=== PATIENT | female | born 1990 | race Two or more races ===

== ENCOUNTER 2025-02-17 20:51 | Emergency (ER) | payer OTHER, SELFPAY ==
[2025-02-17 20:52] VITALS: BMI 24.3
[2025-02-17 21:02] VITALS: BP 121/56; PULSE 59; RESP 20; TEMP 36.3; O2SAT 100
--- NOTE | 2025-02-17 21:15 | XR_ITS ---
Examination: Abdomen sonogram, Limited Date and time of exam: February 17, 2025 2154 hours INDICATIONS: Abdominal pain and vomiting today Multiple transabdominal sonographic images abdomen FINDINGS: Absent gallbladder Normal common bile duct 0.4 cm Pancreatic head 2.1 cm Liver 16.8 cm fatty infiltration Normal hepatopedal portal venous O Patent IVC IMPRESSION: Absent gallbladder Normal common bile duct. Mild hepatomegaly with fatty liver
--- NOTE | 2025-02-17 21:16 | PD.EDRME ---
Rapid Medical Screening Exam RME Arrival date/time: 02/17/25 20:51 This is a 35-year-old female that comes in with complaints of abdominal pain nausea vomiting that started today. Patient has had gastritis in the past. I have greeted and performed a focused initial assessment of this patient. Initial appropriate labs ordered at this time. A comprehensive ED assessment and evaluation of the patient and analysis of all test and completion of medical decision making process will be conducted by additional ED provider. Chief Complaint: Abdominal Pain Time Seen by Provider: 02/17/25 21:08 Vital signs: Vital Signs Temperature 97.4 F 02/17/25 21:02 Pulse Rate 59 L 02/17/25 21:02 Respiratory Rate 20 02/17/25 21:02 Blood Pressure 121/56 L 02/17/25 21:02 Pulse Oximetry (%) 100 02/17/25 21:02 Oxygen Delivery Method Room Air 02/17/25 21:02
[2025-02-17 21:34] LABS: Collection Type, Urine Voided
[2025-02-17 21:44] LABS: Basophils # (Auto) 0.1 Thou/mm3 (0.0-0.2); Basophils % (Auto) 0 % (0-2.5); Eosinophils % (Auto) 0 % (0-10); Hematocrit 38.8 % (36.0-46.0); Hemoglobin 13.6 g/dL (12.0-16.0); Immature Granulocytes % (Auto) 1 % (0-0); Immature Granulocytes Auto 0.14 Thou/mm3 (0.00-0.00); Lymphocytes % (Auto) 4 % (10-50); Mean Corpuscular HGB Conc 35.1 g/dl (31.0-37.0); Mean Corpuscular Hemoglobin 31.3 pg (25.0-35.0); Mean Corpuscular Volume 89 fL (80-100); Monocytes # (Auto) 1.4 Thou/mm3 (0.0-0.8); Monocytes % (Auto) 5 % (0-12); Neutrophils # (Auto) 24.7 Thou/mm3 (1.8-7.7); Neutrophils % (Auto) 91 % (37-80); Nucleated Red Blood Cell % 0 /100 WBC (0); Platelet Count 221 Thou/mm3 (140-440); RDW Standard Deviation 38.9 fL (36.4-46.3); Red Blood Count 4.35 Miln/mm3 (4.00-5.20); White Blood Count 27.2 Thou/mm3 (3.6-11.0)
[2025-02-17] MEDS: ONDANSETRON ODT 4 MG TABRAP PO (21:44)
[2025-02-17 21:45] LABS: Bilirubin,Urine Negative (Negative); Blood,Urine Negative (Negative); Clarity,Urine Clear (Clear/Hazy); Color,Urine Yellow (Lt Yel-Yel); Culture Indicated,Urine Not Indicated; Glucose, Urine 3+ (Negative); Ketones,Urine 4+ (Negative); Leukocyte Esterase,Urine Negative (Negative); Nitrite,Urine Negative (Negative); Protein,Urine 2+ (Neg - Trace); RBC,Urine 3 /hpf (0-3); Specific Gravity,Urine 1.046 (1.001-1.035); Squamous Epithelial Cell,Urine 3 /hpf (0-5); Urobilinogen,Urine Negative mg/dL (0.0-1.0); WBC,Urine 2 /hpf (0-5)
[2025-02-17 22:00] LABS: Alanine Aminotransferase 12 U/L (10-49); Albumin/Globulin Ratio 1.8 (1.2-2.2); Alkaline Phosphatase 69 U/L (46-116); Anion Gap 15 (7-16); Aspartate Amino Transferase 17 U/L (0-34); BUN/Creatinine Ratio 13 Ratio (12-20); Bilirubin,Total 1.9 mg/dL (0.3-1.2); Blood Urea Nitrogen 10 mg/dL (9-23); Calcium 9.9 mg/dL (8.3-10.6); Calcium (Corrected) 9.9 mg/dL (8.5-10.1); Carbon Dioxide 20.6 mMol/L (20.0-31.0); Chloride 107 mMol/L (98-107); Creatinine (Component) 0.8 mg/dL (0.6-1.3); Estimated Creatinine Clearance 95.4 mL/min (>60); Globulin 2.8 gm/dL (2.3-3.5); Glucose 240 mg/dL (74-106); Lipase 28 U/L (12-53); Osmolality,Calculated 291 (275-295); Potassium 3.2 mMol/L (3.4-5.1); Sodium 143 mMol/L (136-145); Total Protein 7.8 gm/dL (5.7-8.2); eGFR > 60 See Note
[2025-02-17 22:04] LABS: Amphetamine/Methamp Scrn,U Negative (Negative); Barbiturate Screen,Urine Negative (Negative); Benzodiazepines Screen,Urine Negative (Negative); Benzoylecgonine Screen, Ur Negative (Negative); Fentanyl Screen,Urine Positive (Negative); Opiate Screen,Urine Positive (Negative); THC Screen,Urine Positive (Negative)
[2025-02-17] MEDS: LIDOCAINE VISCOUS 2% 15 ML UDC 10 ML PO (22:24)
[2025-02-17] MEDS: MG HYD/AL HYD/SIME (Maalox Reg) SUSP 30 ML UDC PO (22:24)
[2025-02-17 22:28] LABS: HCG,Qualitative Serum Negative
[2025-02-17 23:56] VITALS: BP 132/60; PULSE 58; RESP 17; TEMP 36.6; O2SAT 99
[2025-02-18] VITALS (8 sets, daily range): BP systolic 127–169; BP diastolic 60–82; PULSE 54–78; RESP 16–20; TEMP 36.7–37.2; O2SAT 97–99
--- NOTE | 2025-02-18 | XR_ITS ---
MRI abdomen, without contrast. MRCP Date and time of exam: February 18, 2025 1017 hours INDICATIONS: Nausea vomiting beginning yesterday Technique: Multiple axial and coronal images of the abdomen have been obtained with the Siemens 1.5T MRI scanner. Images obtained included T1 weighted transverse images, T2-weighted transverse images, T2-weighted transverse images fat-suppressed, T2 weighted haste fat suppressed transverse images, T1 weighted images, in and out of phase images, T2-weighted coronal images, breath hold, T2 weighted haze coronal images as well as T2 weighted coronal thick slab images, MRCP. Findings: Hepatomegaly 17 cm No intrahepatic biliary tract dilatation No focal liver lesions Absent gallbladder Normal common hepatic common bile duct, no stones No dilated pancreatic duct No peripancreatic edema Spleen is not enlarged No hydronephrosis Aorta normal size No bowel obstruction IMPRESSION: Mild hepatomegaly Absent gallbladder Negative for common hepatic or common bile the stones Negative for pancreatitis
[2025-02-18] MEDS: SODIUM CHLORIDE 0.9% 1000 ML 1,000 ML 999 ML IV ×2 (00:05→06:53)
[2025-02-18] MEDS: HALOPERIDOL LACT INJ 5 MG/ML VIAL IM (00:08)
[2025-02-18] MEDS: DiphenhydrAMINE INJ 50 MG/ML VIAL 25 MG IVP (00:09)
[2025-02-18] MEDS: MORPHINE SULF INJ 10 MG/ML VIAL 4 MG IVP ×2 (00:32→02:43)
--- NOTE | 2025-02-18 02:02 | PD.EDABDPN ---
ED Abdominal Pain RME/HPI General Chief Complaint: Abdominal Pain Stated complaint: ABD PAIN/ VOMITING AND NAUSEA Time seen by provider: 02/17/25 21:08 Arrival date/time: 02/17/25 20:51 RME / HPI RME / HPI narrative: 02/17/25 20:51 This is a 35-year-old female that comes in with complaints of abdominal pain nausea vomiting that started today. Patient has had gastritis in the past. I have greeted and performed a focused initial assessment of this patient. Initial appropriate labs ordered at this time. A comprehensive ED assessment and evaluation of the patient and analysis of all test and completion of medical decision making process will be conducted by additional ED provider. DR. THOMAS MAIN ED EVALUATION: -P MHx: Gallbladder disease, hiatal hernia, ulcer -P Social Hx: Former heavy marijuana smoker 35 y/o female with Hx of gallbladder disease, hiatal hernia, and ulcer and SHx of cholecystectomy presents to ED c/o abdominal pain and vomiting x approximately 12 hours. Patient's last EGD was last week and was told that hernia was not bad enough for surgery. Prior to ED arrival, she was seen and discharged from [place] this afternoon. States she passed out and ambulance transferred her to [facility] where nothing was done to help her. Patient is currently on Protonix but it is not helping. LMP is unknown as she uses an IUD. She has not had a colonoscopy. Patient denies cigarette smoking, diarrhea, fever or any other associated symptoms or aggravating factors. No modifying factors, no radiation, no migration. No pain reported overall. PMHx: Ulcer, gallbladder disease, hiatal hernia Medications: Reviewed Social history: Former heavy marijuana smoker PCP: Dr. Nation Related Data Home Medications ?Medication ?Instructions ?Recorded ?Confirmed omeprazole 20 mg capsule,delayed 20 mg PO DAILY 03/14/21 03/14/21 release Previous Rx's ?Medication ?Instructions ?Recorded sucralfate 100 mg/mL oral 10 ml PO QID #1,000 mL 03/15/21 suspension (Carafate) aluminum-mag hydroxide-simethicone 10 ml PO BID #3,000 mL 11/11/23 200 mg-200 mg-20 mg/5 mL oral susp (Maalox Advanced) famotidine 40 mg tablet (Pepcid) 40 mg PO QDAY #30 tabs 11/11/23 ondansetron 4 mg disintegrating 4 mg PO Q8H PRN nausea and 11/11/23 tablet vomiting #30 tabs Allergies Allergy/AdvReac Type Severity Reaction Status Date / Time codeine Allergy Verified 02/17/25 21:20 Review of Systems Review of Systems Systems Reviewed: All systems reviewed, normal except as documented Narrative Review of Systems: Gen: No fever GI: + vomiting, no diarrhea Past Medical History Past Medical History GASTROINTESTINAL: Positive Gastrointestinal Disorders, Gall Bladder Disease and Ulcer Surgical History SURGICAL: Positive Abdominal Surgery ED Exam Narrative Physical exam: GENERAL: In general the patient is awake, interactive, looks like she feels unwell, in an emergency department rsouth bend. HEAD/EYES/EARS/NOSE/THROAT: normo-cephalic, atraumatic, clinically dehydrated. No cervical tenderness palpation midline. Supple neck. CARDIOVASCULAR: regular rate and regular rhythm, no murmurs, heart sounds are not distant, strong pulses in all four extremities that are equal and symmetric bilateral upper and lower extremities, normal capillary refill. CHEST/PULMONARY: normal chest rise and fall, good air movement, clear to auscultation bilaterally, normal inspiratory to expiratory ratios without evidence of respiratory distress. ABDOMEN: Guarding Course Quality Measures none Orders Category Date Time Status CT Screening NOW Care 02/18/25 04:29 Completed MRI Screening NOW Care 02/18/25 09:[address] abdomen pelvis w con Stat Exams 02/18/25 04:29 Completed MR MRCP Stat Exams 02/18/25 Completed US abdomen limited Stat Exams 02/17/25 21:15 Completed CBC Stat Lab 02/17/25 21:28 Completed CBC Stat Lab 02/18/25 10:10 Completed Comprehensive Metabolic Panel Stat Lab 02/17/25 21:28 Completed Drug Screen,Urine Stat Lab 02/17/25 21:27 Completed HCG,Qualitative Serum Stat Lab 02/17/25 21:28 Completed Lactate (Lactic Acid) Stat Lab 02/18/25 02:19 Completed Lactate (Lactic Acid) Stat Lab 02/18/25 10:10 Completed Lipase Stat Lab 02/17/25 21:28 Completed Procalcitonin Stat Lab 02/18/25 02:19 Completed Urinalysis, C/S if Indicated Stat Lab 02/17/25 21:27 Completed DiphenhydrAMINE INJ [Benadryl Inj] Med 02/17/25 23:57 Discontinued 25 mg IVP X1 ONE DiphenhydrAMINE INJ [Benadryl Inj] Med 02/17/25 23:51 Discontinued 50 mg IVP X1 ONE Famotidine Inj [Pepcid Inj] Med 02/18/25 02:08 Discontinued 20 mg IVP X1 ONE Haloperidol Lactate [Haldol Inj] Med 02/17/25 23:50 Discontinued 5 mg IM X1 ONE LORazepam [Ativan Inj] Med 02/18/25 02:05 Discontinued 1 mg IVP X1 ONE Lidocaine 2% Viscous [Xylocaine 2% Viscous] Med 02/17/25 22:16 Discontinued 10 ml PO X1 ONE Metoclopramide Inj [Reglan Inj] Med 02/18/25 02:07 Discontinued 10 mg IVP X1 ONE Morphine Inj Med 02/17/25 23:57 Discontinued 4 mg IVP X1 ONE Morphine Inj Med 02/18/25 02:21 Discontinued 4 mg IVP X1 ONE Ondansetron Inj [Zofran Inj] Med 02/18/25 02:05 Discontinued 4 mg IV X1 ONE Ondansetron Odt [Zofran Odt] Med 02/17/25 21:13 Discontinued 4 mg PO X1 ONE Sodium Chloride 0.9% 1000 ml [Ns] 1,000 ml Med 02/18/25 09:20 Discontinued IV 200 mls/hr Sodium Chloride 0.9% 1000 ml [Ns] 1,000 ml Med 02/17/25 23:50 Discontinued IV 999 mls/hr Sodium Chloride 0.9% 1000 ml [Ns] 1,000 ml Med 02/18/25 06:01 Discontinued IV 999 mls/hr mg Hyd/Al Hyd/Aj Susp [Maalox Susp] Med 02/17/25 22:16 Discontinued 30 ml PO X1 ONE Vital Signs Vital signs: Vital Signs Temperature 97.4 F 02/17/25 21:02 Pulse Rate 59 L 02/17/25 21:02 Respiratory Rate 20 02/17/25 21:02 Blood Pressure 121/56 L 02/17/25 21:02 Pulse Oximetry (%) 100 02/17/25 21:02 Oxygen Delivery Method Room Air 02/17/25 21:02 Abdominal Pain MDM MDM Narrative MDM Narrative:: Scribe Attestation: Vanessa Sharpe am scribing for and in the presence of Dr. Stevenson. Provider Notation: Although this document has been carefully reviewed, there may still be some phonetic and other typographical errors. These errors are purely grammatical due to imperfections in the software program and should not be construed in any way to compromise the substance of the patient's medical care during this visit. 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 The patient otherwise was given Haldol, morphine x 2, and IV fluids here in the emergency department. Her initial white count was 27,000 which can be elevated from vomiting however that is a pretty high amount. Her potassium is 3.2 and it is replaced. The patient's lactic acid is 1.2 and procalcitonin is negative. The patient has a total bili of 1.9 but has a history of elevated total bili with normal AST and ALT, patient also has a normal alk phos and lipase. Urinalysis shows specific gravity elevated 1.046, 2+ urine protein and 4+ ketones which is consistent with her dehydration. She has no bacteria and otherwise white cells are negative in the urine no leukocytes or nitrates. At this time I do not feel the patient has a UTI. Her drug screen is positive for marijuana positive. MDM Narrative:: Scribe Attestation: Vanessa Sharpe am scribing for and in the presence of Dr. Stevenson. Provider Notation: Although this document has been carefully reviewed, there may still be some phonetic and other typographical errors. These errors are purely grammatical due to imperfections in the software program and should not be construed in any way to compromise the substance of the patient's medical care during this visit. 0600: Care assumed by Dr. Shah (emergency physician). Past medical, surgical, social and family history reviewed. Vitals and home medications reviewed. Results and treatment plan discussed. They will assume the care of the patient at this time and will follow the patient, pending results for abdomen pelvis CT with contrast. Please refer to the emergency department record for history and examination from initial visit. 02/18/25 6:02 Vanessa Carias Patient data External records reviewed:: [facility] previous records (Prior ED records from 11/11/23 reviewed. Patient was seen for Gastritis.) Clinical information provided by:: patient Social determinants that could affect healthcare access:: none Patient has the following chronic illnesses:: Hiatal hernia, gallbladder disease, ulcer How is presenting disease/condition affected by chronic disease/condition?: exacerbated by Evaluation data The following diagnostics were reviewed and interpreted by me:: lab results and radiology exam(s) Lab and/or radiology exams considered but not ordered:: None Interpretation Summary: ABDOMEN US FINDINGS: Absent gallbladder Normal common bile duct 0.4 cm Pancreatic head 2.1 cm Liver 16.8 cm fatty infiltration Normal hepatopedal portal venous O Patent IVC IMPRESSION: Absent gallbladder Normal common bile duct. Mild hepatomegaly with fatty liver LABS Hematology: WBC 27.2, Neutrophils % 91%, Lymphocytres % 4%, Neutrophil # 24.7, Monocytes # 1.4, immature granulocytes # 0.14, Immature granulocytes % 1%. Chemistry: Potassium 3.2, Glucose 240, Total bilirubin 1.9, Lactic acid 1.2, Procalcitonin 0.07. Urine: Specific gravity 1.046, Protein 2+, Glucse 3+, Ketones 4+. Toxicology: Opiates Positive, Fentanyl Positive, Marijuana Positive Medications / Prescriptions Medications or Prescriptions considered but not ordered:: None Medication administrations:: Medication Administration History Discontinued Medications Al Hydrox/Mg Hydrox/Simethicone (Mg Hyd/Al Hyd/Aj (Maalox Reg) Susp 30 Ml Udc) 30 ml PO X1 ONE Stop: 02/17/25 22:17 Last Admin: 02/17/25 22:24 Dose: 30 ml Documented By: SHIMA Diphenhydramine HCl (Diphenhydramine Inj 50 Mg/Ml Vial) 50 mg IVP X1 ONE Stop: 02/17/25 23:52 Last Admin: 02/18/25 01:28 Dose: Not Given Documented By: YOVANI Non-Admin Reason: Cancelled by Provider Diphenhydramine HCl (Diphenhydramine Inj 50 Mg/Ml Vial) 25 mg IVP X1 ONE Stop: 02/17/25 23:58 Last Admin: 02/18/25 00:09 Dose: 25 mg Documented By: YOVANI Famotidine (Famotidine Inj 10 Mg/Ml Vial 2 Ml) 20 mg IVP X1 ONE Stop: 02/18/25 02:09 Last Admin: 02/18/25 02:44 Dose: 20 mg Documented By: YOVANI Haloperidol Lactate (Haloperidol Lact Inj 5 Mg/Ml Vial) 5 mg IM X1 ONE Stop: 02/17/25 23:51 Last Admin: 02/18/25 00:08 Dose: 5 mg Documented By: YOVANI Sodium Chloride (Ns) 1,000 mls @ 999 mls/hr IV .Q1H1M ONE Stop: 02/18/25 00:50 Last Infusion: 02/18/25 01:28 Dose: Infused Documented By: Admin: 02/18/25 00:05 Dose: 999 mls/hr Documented By: YOVANI Sodium Chloride (Ns) 1,000 mls @ 999 mls/hr IV .Q1H1M ONE Stop: 02/18/25 07:01 Last Infusion: 02/18/25 07:45 Dose: Infused Documented By: Admin: 02/18/25 06:53 Dose: 999 mls/hr Documented By: ROVERTO Sodium Chloride (Ns) 1,000 mls @ 200 mls/hr IV .Q5H ONE Stop: 02/18/25 14:19 Last Admin: 02/18/25 09:26 Dose: 200 mls/hr Documented By: ELIZABETH Lidocaine HCl (Lidocaine Viscous 2% 15 Ml Udc) 10 ml PO X1 ONE Stop: 02/17/25 22:17 Last Admin: 02/17/25 22:24 Dose: 10 ml Documented By: SHIMA Lorazepam (Lorazepam 2 Mg/Ml Vial) 1 mg IVP X1 ONE Stop: 02/18/25 02:06 Last Admin: 02/18/25 05:46 Dose: 1 mg Documented By: YOVANI Metoclopramide HCl (Metoclopramide Inj 5 Mg/Ml Vial 2 Ml) 10 mg IVP X1 ONE; Protocol Stop: 02/18/25 02:08 Last Admin: 02/18/25 02:44 Dose: 10 mg Documented By: YOVANI Morphine Sulfate (Morphine Sulf Inj 10 Mg/Ml Vial) 4 mg IVP X1 ONE Stop: 02/17/25 23:58 Last Admin: 02/18/25 00:32 Dose: 4 mg Documented By: YOVANI Morphine Sulfate (Morphine Sulf Inj 10 Mg/Ml Vial) 4 mg IVP X1 ONE Stop: 02/18/25 02:22 Last Admin: 02/18/25 02:43 Dose: 4 mg Documented By: YOVANI Ondansetron HCl (Ondansetron Odt 4 Mg Tabrap) 4 mg PO X1 ONE; Protocol Stop: 02/17/25 21:14 Last Admin: 02/17/25 21:44 Dose: 4 mg Documented By: MAHENDRA Ondansetron HCl (Ondansetron Inj 2 Mg/Ml Inj 2 Ml) 4 mg IV X1 ONE; Protocol Stop: 02/18/25 02:06 Last Admin: 02/18/25 05:52 Dose: 4 mg Documented By: YOVANI See above if any Consultations Consultation(s) initiated? (list below): No Diagnosis Differential diagnosis abdominal pain: abdominal pain Most likely diagnosis given after review of the tests above:: Abdominal pain, intractable nausea Admission Indicated Admission indicated?: not indicated Admission Request Was there a request for admission?: No Disposition Plan Disposition Plan: other (specify) Discharge Plan Plan Patient Disposition: HOME (Self Care) Prescriptions/Referrals Prescriptions/Med Rec: No Action omeprazole 20 mg capsule,delayed release(DR/EC) 20 mg PO DAILY Patient Comments: TAKE 1 CAPSULE BY MOUTH DAILY FOR 14 DAYS sucralfate [Carafate] 100 mg/mL suspension 10 ml PO QID Qty: 1000 0RF Rx Instructions: swish in mouth and swallow; use after food/drink famotidine [Pepcid] 40 mg tablet 40 mg PO QDAY Qty: 30 0RF ondansetron 4 mg tablet,disintegrating 4 mg PO Q8H PRN (Reason: nausea and vomiting) Qty: 30 0RF alum-mag hydroxide-simeth [Maalox Advanced] 200-200-20 mg/5 mL suspension 10 ml PO BID Qty: 3000 0RF Referrals: No Primary/Family,Physician [Primary Care Provider] - In 1 week Problem List Clinical Impression: Abdominal pain, Intractable nausea, Intractable cyclical vomiting, Acute dehydration, Leukocytosis, Elevated bilirubin, Marijuana use Patient/Caregiver Discharge Instructions Education Materials: Abdominal Pain, Dehydration, ED Vomiting (Adult) Additional Instructions: Today you had intractable nausea and vomiting with severe dehydration. You have had recurring bouts of the same thing for the past 4 years and evidently you had some significant weight loss. You must follow-up with your doctor and your specialist as we discussed. Keep a diary. You must stop using marijuana as this is known to cause a cyclical vomiting recurring problem. If you are getting worse please return for reevaluation. Print Language: Citizen Of [place]
[2025-02-18 02:29] LABS: Lactate (Lactic Acid) 1.2 mMol/L (0.4-2.0)
[2025-02-18] MEDS: METOCLOPRAMIDE INJ 5 MG/ML VIAL 2 ML 10 MG IVP (02:44)
[2025-02-18] MEDS: FAMOTIDINE INJ 10 MG/ML VIAL 2 ML 20 MG IVP (02:44)
--- NOTE | 2025-02-18 03:01 | PC.NURSE ---
pt is feeling better however pain is going back up. aditional morphine and some other meds given. pt is now asleep. holding ativan at this time beause second dose of morphing given and pt is sleeping. family who was at bedside left but will return.
[2025-02-18 03:36] LABS: Procalcitonin 0.07 ng/ml (0.0-0.49)
--- NOTE | 2025-02-18 04:29 | XR_ITS ---
Examination: CT abdomen with intravenous contrast CT pelvis with intravenous contrast 2-D coronal reconstructions 2-D sagittal reconstructions Date and time of exam:February 18, 2025 0628 hours Comparison November 11, 2023 INDICATIONS: History is abdominal pain beginning today, history gallbladder disease. CTDI: vol (mGy) 6.11 DLP: (mGycm) 311 Technique: Multiple axial sections of the abdomen and pelvis have been obtained. 64 slice high-resolution scanner used. 3 mm axial sections have been obtained, post intravenous injection of 60 cc [id number] 2-D sagittal, coronal reconstructions obtained. Low dose protocols were performed. One or more of the following dose reduction techniques were used; automated exposure control, adjustment of the mA and/or KV according to patient size, use of iterative reconstruction technique. Findings: Hepatomegaly 18 cm, no focal liver or splenic lesion Absent gallbladder Normal common bile duct Edema in the gastric mucosa axial image 86 No pancreatic mass or peripancreatic edema Aorta normal size. No bowel obstruction No pericecal inflammatory change Negative for diverticulitis Anteverted uterus with intrauterine device satisfactory position No uterine or adnexal mass Urinary bladder intact Osseous structures intact. Impression : Antral gastritis pattern Normal common hepatic common bile duct Negative for pancreatitis No renal or ureteral calculi No CT findings of appendicitis bowel obstruction or diverticulitis
[2025-02-18] MEDS: LORazepam 2 MG/ML VIAL 1 MG IVP (05:46)
[2025-02-18] MEDS: ONDANSETRON INJ 2 MG/ML INJ 2 ML 4 MG IV (05:52)
--- NOTE | 2025-02-18 09:01 | EDNOTE_ITS ---
Emergency Room Addendum <Aparna Walter - Last Filed: 02/18/25 11:58> Addendum Narrative: 0600: Care assumed from Dr. French, the previous shift emergency physician. Past medical, surgical, social and family history reviewed. Vitals and home medications reviewed. I will assume the care of the patient at this time, pending CT report and final disposition. Please refer to the emergency department record for history and examination from initial visit.?The following addendum documentation note is intended to reflect any pending information, findings, or radiology results not included in the patient?s initial chart. 0858: Patient remains clinically stable throughout the emergency department visit. We reviewed all the results, analysis, and treatment plans. At this time patient has a soft and benign abdomen. Patient was signed out 0600 hrs. Nancy has intractable nausea and vomiting with abdominal pain has had multiple recurrences gone to multiple hospitals even the last 24 hours. At 0840 hrs. I went back reevaluated the patient and she says she is feeling better she is up walking she still appears to be uncomfortable but much improved there is been no more vomiting and she been taking sips of water I took a more detailed history where she just saw her third GI specialist in the last 4 years in [place] who did an EGD in a couple weeks ago and it was entirely negative evidently.. Patient states she has had multiple workups in the past and they have never found the etiology to her nausea vomiting. She does use marijuana and is marijuana is positive in her system again today. She is aware that marijuana can cause intractable nausea and vomiting. Patient has lost 40 pounds of weight in the last 4 years Medical workup revealed a urine that was initially collected with a very concentrated urine of 1046. Urine drug screen is positive for marijuana fentanyl and opioids and she got fentanyl for pain medicine one of the other hospitals and opioids also. Or at least that is what is reported. hCG was negative today procalcitonin was negative lipase was negative. Lipase was negative. Transaminases were negative total bilirubin is elevated 1.9 note 3 years ago her bilirubin is normal but she has had 2 other measurements over the last 3 years that were slightly bumped with no workup or follow-up associated with those. Patient reports no MRCP has been done. She has a gallbladder that has been removed surgically. Ultrasound today revealed surgically absent gallbladder and normal findings otherwise. Lactic acid today was 1.2. Glucose was elevated to 40. Noted potassium was 3.2. No her white count was 27.2 thousand on arrival at 2128 last night with a 91% neutrophils On reevaluation this morning patient alert awake she is standing she appears to be nausea but says she feels minimal nausea and she also appears tired as she has not slept or eaten much in the last 24 hours. She has had 3 L of fluid. Her abdomen is totally soft and benign. Her breathing is normal her chest is unremarkable her lower extremities are unremarkable there is no edema. She had normal gait and station At this time she has a minimally elevated bilirubin I am going to get MRCP to rule out a choledocholithiasis since she has had 3 past bilirubins with no MRCP on record. I will recheck a urine and a CBC make sure the white count is gone down and her specific gravity is normalized. Repeat a lactic acid since the first 1 was negative I assume this 1 will be about the same or better. RADIOLOGY Ordering Physician: Coni French MD Date of Service: 02/18/25 Procedure(s): CT abdomen pelvis w con Accession Number(s): [id number] cc: Michael Santiago MD; NO PRIMARY/FAMILY,PHYSICIAN; Coni French MD~ Examination: CT abdomen with intravenous contrast CT pelvis with intravenous contrast 2-D coronal reconstructions 2-D sagittal reconstructions Date and time of exam:February 18, 2025 0628 hours Comparison November 11, 2023 INDICATIONS: History is abdominal pain beginning today, history gallbladder disease. CTDI: vol (mGy) 6.11 DLP: (mGycm) 311 Technique: Multiple axial sections of the abdomen and pelvis have been obtained. 64 slice high-resolution scanner used. 3 mm axial sections have been obtained, post intravenous injection of 60 cc [id number] cc 2-D sagittal, coronal reconstructions obtained. Low dose protocols were performed. One or more of the following dose reduction techniques were used; automated exposure control, adjustment of the mA and/or KV according to patient size, use of iterative reconstruction technique. Findings: Hepatomegaly 18 cm, no focal liver or splenic lesion Absent gallbladder Normal common bile duct Edema in the gastric mucosa axial image 86 No pancreatic mass or peripancreatic edema Aorta normal size. No bowel obstruction No pericecal inflammatory change Negative for diverticulitis Anteverted uterus with intrauterine device satisfactory position No uterine or adnexal mass Urinary bladder intact Osseous structures intact. Impression : Antral gastritis pattern Normal common hepatic common bile duct Negative for pancreatitis No renal or ureteral calculi No CT findings of appendicitis bowel obstruction or diverticulitis Dictated By:Michael Santiago MD Signed By:<Electronically signed by Michael Santiago MD in [place]>02/18/25 0730 ===== Ordering Physician: Kaden Shah MD Date of Service: 02/18/25 Procedure(s): MR MRCP Accession Number(s): [id number] cc: Kaden Shah MD; Michael Santiago MD; NO PRIMARY/FAMILY,PHYSICIAN~ MRI abdomen, without contrast. MRCP Date and time of exam: February 18, 2025 1017 hours INDICATIONS: Nausea vomiting beginning yesterday Technique: Multiple axial and coronal images of the abdomen have been obtained with the Siemens 1.5T MRI scanner. Images obtained included T1 weighted transverse images, T2-weighted transverse images, T2-weighted transverse images fat-suppressed, T2 weighted haste fat suppressed transverse images, T1 weighted images, in and out of phase images, T2-weighted coronal images, breath hold, T2 weighted haze coronal images as well as T2 weighted coronal thick slab images, MRCP. Findings: Hepatomegaly 17 cm No intrahepatic biliary tract dilatation No focal liver lesions Absent gallbladder Normal common hepatic common bile duct, no stones No dilated pancreatic duct No peripancreatic edema Spleen is not enlarged No hydronephrosis Aorta normal size No bowel obstruction IMPRESSION: Mild hepatomegaly Absent gallbladder Negative for common hepatic or common bile the stones Negative for pancreatitis Dictated By:Michael Santiago MD Signed By:<Electronically signed by Michael Santiago MD in [place]>02/18/25 1053 <Kaden Shah MD - Last Filed: 02/18/25 12:03> Addendum Narrative: 0600: Care assumed from Dr. French, the previous shift emergency physician. Past medical, surgical, social and family history reviewed. Vitals and home medications reviewed. I will assume the care of the patient at this time, pending CT report and final disposition. Please refer to the emergency department record for history and examination from initial visit.?The following addendum documentation note is intended to reflect any pending information, findings, or radiology results not included in the patient?s initial chart. 0858: Patient remains clinically stable throughout the emergency department visit. We reviewed all the results, analysis, and treatment plans. At this time patient has a soft and benign abdomen. Patient was signed out 0600 hrs. At and has recurrent intractable nausea and vomiting with abdominal pain has had multiple recurrences gone to multiple hospitals even the last 24 hours. At 0840 hrs. I went back reevaluated the patient and she says she is feeling better she is up walking she still appears to be uncomfortable but much improved there is been no more vomiting and she been taking sips of water I took a more detailed history where she just saw her third GI specialist in the last 4 years in [place] who did an EGD in a couple weeks ago and it was entirely negative evidently.. Patient states she has had multiple workups in the past and they have never found the etiology to her nausea vomiting. She does use marijuana and is marijuana is positive in her system again today. She is aware that marijuana can cause intractable nausea and vomiting. Patient has lost 40 pounds of weight in the last 4 years Medical workup revealed a urine that was initially collected with a very concentrated urine of 1046. Urine drug screen is positive for marijuana fentanyl and opioids and she got fentanyl for pain medicine one of the other hospitals and opioids also. Or at least that is what is reported. hCG was negative today procalcitonin was negative lipase was negative. Lipase was negative. Transaminases were negative total bilirubin is elevated 1.9 note 3 years ago her bilirubin is normal but she has had 2 other measurements over the last 3 years that were slightly bumped with no workup or follow-up associated with those. Patient reports no MRCP has been done. She has a gallbladder that has been removed surgically. Ultrasound today revealed surgically absent gallbladder and normal findings otherwise. Lactic acid today was 1.2. Glucose was elevated to 40. Noted potassium was 3.2. No her white count was 27.2 thousand on arrival at 2128 last night with a 91% neutrophils On reevaluation this morning patient alert awake she is standing she appears to be nausea but says she feels minimal nausea and she also appears tired as she has not slept or eaten much in the last 24 hours. She has had 3 L of fluid. Her abdomen is totally soft and benign. Her breathing is normal her chest is unremarkable her lower extremities are unremarkable there is no edema. She had normal gait and station At this time she has a minimally elevated bilirubin I am going to get MRCP to rule out a choledocholithiasis since she has had 3 past bilirubins with no MRCP on record. I will recheck a urine and a CBC make sure the white count is gone down and her specific gravity is normalized. Repeat a lactic acid since the first 1 was negative I assume this 1 will be about the same or better. Patient is reevaluated at 1200 hrs. and she is still feeling better. MRI/MRCP was done and came back negative. There is no stones seen in the common bile duct. Follow-up lactic acid is lower at 0.5. The white count has normalized towards 15.5 thousand from 27.2 thousand earlier. Clinically much improved and patient been advised to keep a diary sips of water and follow-up with getting worse. Note I had a good 1520-minute discussion with the patient and the mother discussing the previous workups which were reserved and some of the information above. She is fully aware that she needs to stop using marijuana. RADIOLOGY ___ Ordering Physician: Coni French MD Date of Service: 02/18/25 Procedure(s): CT abdomen pelvis w con Accession Number(s): [id number] cc: Michael Santiago MD; NO PRIMARY/FAMILY,PHYSICIAN; Coni French MD~ Examination: CT abdomen with intravenous contrast CT pelvis with intravenous contrast 2-D coronal reconstructions 2-D sagittal reconstructions Date and time of exam:February 18, 2025 0628 hours Comparison November 11, 2023 INDICATIONS: History is abdominal pain beginning today, history gallbladder disease. CTDI: vol (mGy) 6.11 DLP: (mGycm) 311 Technique: Multiple axial sections of the abdomen and pelvis have been obtained. 64 slice high-resolution scanner used. 3 mm axial sections have been obtained, post intravenous injection of 60 cc [id number] cc 2-D sagittal, coronal reconstructions obtained. Low dose protocols were performed. One or more of the following dose reduction techniques were used; automated exposure control, adjustment of the mA and/or KV according to patient size, use of iterative reconstruction technique. Findings: Hepatomegaly 18 cm, no focal liver or splenic lesion Absent gallbladder Normal common bile duct Edema in the gastric mucosa axial image 86 No pancreatic mass or peripancreatic edema Aorta normal size. No bowel obstruction No pericecal inflammatory change Negative for diverticulitis Anteverted uterus with intrauterine device satisfactory position No uterine or adnexal mass Urinary bladder intact Osseous structures intact. Impression : Antral gastritis pattern Normal common hepatic common bile duct Negative for pancreatitis No renal or ureteral calculi No CT findings of appendicitis bowel obstruction or diverticulitis Dictated By:Michael Santiago MD Signed By:<Electronically signed by Michael Santiago MD in [place]>02/18/25 0730 Dictated By:Michael Santiago MD Signed By:<Electronically signed by Michael Santiago MD in OV>02/18/25729 ===== Ordering Physician: Kaden Shah MD Date of Service: 02/18/25 Procedure(s): MR MRCP Accession Number(s): [id number] cc: Kaden Shah MD; Michael Santiago MD; NO PRIMARY/FAMILY,PHYSICIAN~ MRI abdomen, without contrast. MRCP Date and time of exam: February 18, 2025 1017 hours INDICATIONS: Nausea vomiting beginning yesterday Technique: Multiple axial and coronal images of the abdomen have been obtained with the Siemens 1.5T MRI scanner. Images obtained included T1 weighted transverse images, T2-weighted transverse images, T2-weighted transverse images fat-suppressed, T2 weighted haste fat suppressed transverse images, T1 weighted images, in and out of phase images, T2-weighted coronal images, breath hold, T2 weighted haze coronal images as well as T2 weighted coronal thick slab images, MRCP. Findings: Hepatomegaly 17 cm No intrahepatic biliary tract dilatation No focal liver lesions Absent gallbladder Normal common hepatic common bile duct, no stones No dilated pancreatic duct No peripancreatic edema Spleen is not enlarged No hydronephrosis Aorta normal size No bowel obstruction IMPRESSION: Mild hepatomegaly Absent gallbladder Negative for common hepatic or common bile the stones Negative for pancreatitis Dictated By:Michael Santiago MD Signed By:<Electronically signed by Michael Santiago MD in [place]>02/18/25 1054
--- NOTE | 2025-02-18 09:03 | PC.NURSE ---
doctor at bedside for update and to given results to pt.
[2025-02-18] MEDS: SODIUM CHLORIDE 0.9% 1000 ML 1,000 ML 200 ML IV (09:26)
[2025-02-18 10:15] LABS: Lactate (Lactic Acid) 0.5 mMol/L (0.4-2.0)
[2025-02-18 10:25] LABS: Basophils % (Auto) 0 % (0-2.5); Eosinophils % (Auto) 0 % (0-10); Hematocrit 36.1 % (36.0-46.0); Hemoglobin 12.5 g/dL (12.0-16.0); Immature Granulocytes % (Auto) 1 % (0-0); Immature Granulocytes Auto 0.09 Thou/mm3 (0.00-0.00); Lymphocytes # (Auto) 0.9 Thou/mm3 (1.0-4.8); Lymphocytes % (Auto) 6 % (10-50); Mean Corpuscular HGB Conc 34.6 g/dl (31.0-37.0); Mean Corpuscular Hemoglobin 31.6 pg (25.0-35.0); Mean Corpuscular Volume 91 fL (80-100); Monocytes # (Auto) 0.7 Thou/mm3 (0.0-0.8); Monocytes % (Auto) 5 % (0-12); Neutrophils # (Auto) 13.7 Thou/mm3 (1.8-7.7); Neutrophils % (Auto) 89 % (37-80); Nucleated Red Blood Cell % 0 /100 WBC (0); Platelet Count 167 Thou/mm3 (140-440); RDW Standard Deviation 40.2 fL (36.4-46.3); Red Blood Count 3.96 Miln/mm3 (4.00-5.20); White Blood Count 15.5 Thou/mm3 (3.6-11.0)
== END 2025-02-18 12:23 | disposition home or self-care (01) ==
PROVIDERS: Emergency Medicine; Nurse Practitioner Family; Emergency Provider Emergency Medicine
DX: R10.9 Unspecified abdominal pain (principal); F12.90 Cannabis use, unspecified, uncomplicated; R11.15 Cyclical vomiting syndrome unrelated to migraine; D72.829 Elevated white blood cell count, unspecified; E86.0 Dehydration
CPT/HCPCS: 36415; 74177; 76705; 80053; 80307; 81001; 83605; 83690; 84145; 84703; 85025; 96360; 96361; 96372; 99285; A4649; J1200; J1630; J2060; J2270; J2405; J2765; J3490; J7030; Q0162; Q9967; S8037; 74181; A9270

== ENCOUNTER 2025-05-01 10:00 | Emergency (ER) | payer OTHER, SELFPAY ==
[2025-05-01 10:00] VITALS: BMI 21.9
[2025-05-01 10:10] VITALS: BP 176/71; PULSE 85; RESP 18; TEMP 36.6; O2SAT 97
[2025-05-01] MEDS: MG HYD/AL HYD/SIME (Maalox Reg) SUSP 30 ML UDC PO (10:26)
[2025-05-01] MEDS: HYDROcodone/APAP 5/325 TABLET 1 TAB PO (10:26)
[2025-05-01] MEDS: ONDANSETRON ODT 4 MG TABRAP PO (10:26)
--- NOTE | 2025-05-01 10:28 | PD.EDRME ---
Rapid Medical Screening Exam RME Arrival date/time: 05/01/25 10:00 35-year-old female with a history of a hiatal hernia presents to the emergency room with a chief complaint of 10 out of 10 epigastric pain, vomiting yellow bile, diarrhea x 2 days I have greeted and performed a focused initial assessment of this patient. A comprehensive ED assessment and evaluation of the patient, analysis of all test results, and completion of the medical decision making process will be conducted by additional ED providers. Chief Complaint: Abdominal Pain Vital signs: Vital Signs Temperature 97.9 F 05/01/25 10:10 Pulse Rate 85 05/01/25 10:10 Respiratory Rate 18 05/01/25 10:10 Blood Pressure 176/71 H 05/01/25 10:10 Pulse Oximetry (%) 97 05/01/25 10:10 Oxygen Delivery Method Room Air 05/01/25 10:10 Vital signs reviewed by provider: Yes
[2025-05-01 10:41] LABS: Basophils # (Auto) 0.0 Thou/mm3 (0.0-0.2); Basophils % (Auto) 0 % (0-2.5); Eosinophils # (Auto) 0.0 Thou/mm3 (0.0-0.5); Eosinophils % (Auto) 0 % (0-10); Hematocrit 40.4 % (36.0-46.0); Hemoglobin 14.4 g/dL (12.0-16.0); Immature Granulocytes Auto 0.01 Thou/mm3 (0.00-0.00); Lymphocytes # (Auto) 1.1 Thou/mm3 (1.0-4.8); Lymphocytes % (Auto) 15 % (10-50); Mean Corpuscular HGB Conc 35.6 g/dl (31.0-37.0); Mean Corpuscular Hemoglobin 31.6 pg (25.0-35.0); Mean Corpuscular Volume 89 fL (80-100); Monocytes # (Auto) 0.3 Thou/mm3 (0.0-0.8); Monocytes % (Auto) 5 % (0-12); Neutrophils # (Auto) 5.8 Thou/mm3 (1.8-7.7); Neutrophils % (Auto) 80 % (37-80); Nucleated Red Blood Cell # 0.00 Thou/mm3 (0.00-0.00); Nucleated Red Blood Cell % 0 /100 WBC (0); Platelet Count 152 Thou/mm3 (140-440); RDW Standard Deviation 38.3 fL (36.4-46.3); Red Blood Count 4.56 Miln/mm3 (4.00-5.20); White Blood Count 7.2 Thou/mm3 (3.6-11.0)
[2025-05-01 10:49] LABS: Alanine Aminotransferase 14 U/L (10-49); Albumin, Serum 4.9 gm/dL (3.5-5.0); Albumin/Globulin Ratio 1.8 (1.2-2.2); Alkaline Phosphatase 79 U/L (46-116); Anion Gap 9 (7-16); Aspartate Amino Transferase 19 U/L (0-34); BUN/Creatinine Ratio 10 Ratio (12-20); Bilirubin,Total 1.7 mg/dL (0.3-1.2); Blood Urea Nitrogen 8 mg/dL (9-23); Calcium 9.5 mg/dL (8.3-10.6); Calcium (Corrected) 9.5 mg/dL (8.5-10.1); Carbon Dioxide 26.6 mMol/L (20.0-31.0); Chloride 106 mMol/L (98-107); Creatinine (Component) 0.8 mg/dL (0.6-1.3); Estimated Creatinine Clearance 95.4 mL/min (>60); Globulin 2.8 gm/dL (2.3-3.5); Glucose 113 mg/dL (74-106); Lipase 29 U/L (12-53); Osmolality,Calculated 282 (275-295); Potassium 3.7 mMol/L (3.4-5.1); Sodium 142 mMol/L (136-145); Total Protein 7.7 gm/dL (5.7-8.2); eGFR > 60 See Note
[2025-05-01 11:04] LABS: Collection Type, Urine Clean Catch; RBC,Urine 0 /hpf (0-3); WBC,Urine 0 /hpf (0-5)
[2025-05-01 11:24] LABS: Amorphous Crystals,Urine Present (Absent); Bilirubin,Urine Negative (Negative); Blood,Urine Negative (Negative); Clarity,Urine Turbid (Clear/Hazy); Color,Urine Yellow (Lt Yel-Yel); Glucose, Urine Negative (Negative); Ketones,Urine Trace (Negative); Leukocyte Esterase,Urine Negative (Negative); Nitrite,Urine Negative (Negative); PH,Urine 7.5 (5.0-7.0); Protein,Urine 1+ (Neg - Trace); Specific Gravity,Urine 1.026 (1.001-1.035); Squamous Epithelial Cell,Urine 1 /hpf (0-5); Urobilinogen,Urine Negative mg/dL (0.0-1.0)
[2025-05-01 11:28] LABS: HCG Qualitative,Urine Negative
--- NOTE | 2025-05-01 13:00 | PC.NURSE ---
Patient called to room, No answer in ED lobby or outside of ED at 1204. Patient called to room, No answer in ED lobby or outside of ED at 1235. Patient called to room, No answer in ED lobby or outside of ED at 1255.
== END 2025-05-01 12:55 | disposition left against medical advice (07) ==
LOC: SERX 10:33
PROVIDERS: Nurse Practitioner Family; Emergency Provider Emergency Medicine
DX: R10.13 Epigastric pain (principal); R11.10 Vomiting, unspecified; R19.7 Diarrhea, unspecified; Z53.29 Procedure and treatment not carried out because of patient's decision for other reasons
CPT/HCPCS: 36415; 80053; 80307; 81001; 81025; 83690; 85025; 87086; 99283; Q0162; A9270